=== PATIENT | male | born 1950 | race Caucasian/White ===

== ENCOUNTER 2017-07-09 16:28 | Inpatient (IN) | payer OTHER ==
[~2017-07-09] VITALS: Ht 180.3 cm; Wt 131.8 kg
[~2017-07-09 16:28] MED LIST: AMBIEN10 MG PO; ASPIRIN325 MG PO; ATORVASTATIN CA40 MG PO; CILOSTAZOL50 MG PO; COUMADIN1 MG PO; COUMADIN6 MG PO; ENDOCET 5-3251 EACH PO; FENOFIBRATE145 M1 PO; GABAPENTIN300 MG PO; JANTOVEN1 MG PO; JANTOVEN4 MG PO; JANTOVEN5 MG PO; LASIX20 MG PO; LIPITOR40 MG PO; LISINOPRIL-HCT1 EACH PO; LISINOPRIL5 MG PO; LITE COAT ASPI325 M1 PO; LO-DOSE ASPIRIN81 M2 PO; LOPRESSOR25 MG PO; METOPROLOL TART50 MG PO; MIDNITE PM CHE1 EACH PO; NITROSTAT0.4 MG SL; NORVASC10 MG PO; OMEGA-31000 M1 PO; PLAVIX75 MG PO; PLETAL100 MG PO; SERTRALINE HCL25 MG PO; SIMVASTATIN80 MG PO; TAMSULOSIN HCL0.4 MG PO; VITAMIN D2000 UNIT PO; VITAMIN D22000 UNIT PO; WARFARIN SODIUM2 MG PO
[2017-07-09 16:48] LABS: ANION GAP 16 MEQ/L (2-14); CHLORIDE 113 mEq/L (99-109); CREATININE 15.5 mg/dL (0.6-1.3); GLUCOSE 99 mg/dL (70-99); ISTAT DEVICE 359068; POTASSIUM > 6.0 mEq/L (3.7-5.4); SODIUM 136 mEq/L (136-147); UREA NITROGEN (BUN) 107 mg/dL (9-23)
[2017-07-09 17:01] LABS: HEMATOCRIT 42.8 % (38.0-50.0); MCH 29.3 PG (29.0-34.0); MCHC 32.5 G/DL (30.0-36.0); MCV 90.1 FL (86-99); MEAN PLAT.VOLUME 8.8 uM^3 (9.0-12.4); PLATELET COUNT 189 K/uL (156-360); RBC DIS.WIDTH-CV 16.1 % (11.8-14.6); RBC DIS.WIDTH-SD 53.1 % (39-53); RED BLOOD COUNT 4.75 M/uL (4.00-5.50); WHITE BLOOD COUNT 10.9 K/uL (4.1-10.2)
[2017-07-09 17:06] LABS: PTT 49.9 SEC (25-37)
[2017-07-09 17:11] LABS: CHLORIDE 110 mEq/L (99-109); SODIUM 137 mEq/L (136-147)
[2017-07-09 17:13] LABS: GLUCOSE 97 mg/dL (70-99)
[2017-07-09 17:14] LABS: ANION GAP 16 MEQ/L (2-14)
[2017-07-09 17:17] LABS: GFR ESTIMATE (CALCULATED) 4 mL/min/
[2017-07-09 17:18] LABS: UREA NITROGEN (BUN) 97 mg/dL (9-23)
[2017-07-09 17:19] LABS: POTASSIUM 7.4 mEq/L (3.7-5.4)
[2017-07-09 17:21] LABS: TROP-I INTERPRETATION NEGATIVE; TROPONIN-I 0.02 ng/mL (0.0-0.30)
[2017-07-09 17:55] LABS: INTER. NORMALIZED RATIO 3.7; PROTHROMBIN TIME 43.3 SEC (10.2-12.9)
[2017-07-09 17:59] LABS: CHLORIDE 110 mEq/L (99-109); SODIUM 137 mEq/L (136-147)
[2017-07-09 18:01] LABS: GLUCOSE 96 mg/dL (70-99)
[2017-07-09 18:02] LABS: ANION GAP 17 MEQ/L (2-14)
[2017-07-09 18:05] LABS: GFR ESTIMATE (CALCULATED) 4 mL/min/
[2017-07-09 18:06] LABS: UREA NITROGEN (BUN) 98 mg/dL (9-23)
[2017-07-09] MEDS ORDERED: TRICOR145 MG PO (19:43)
[2017-07-09] MEDS ORDERED: WARFARIN SODIUM1 MG PO (19:47)
[2017-07-09] MEDS ORDERED: WARFARIN SODIUM5 MG PO (19:47)
[2017-07-09] MEDS ORDERED: LOPRESSOR25 MG PO (19:49)
[2017-07-09] MEDS ORDERED: ZOLPIDEM TARTRA10 MG PO (19:49)
[2017-07-09] MEDS ORDERED: ATORVASTATIN CA40 MG PO (19:50)
[2017-07-09] MEDS ORDERED: GABAPENTIN300 MG PO (19:51)
[2017-07-09 20:36] LABS: POINT-OF-CARE METER ID UU13113747
[2017-07-09 21:38] LABS: CHLORIDE 111 mEq/L (99-109); SODIUM 140 mEq/L (136-147)
[2017-07-09 21:39] LABS: GLUCOSE 105 mg/dL (70-99)
[2017-07-09 21:41] LABS: ANION GAP 17 MEQ/L (2-14)
[2017-07-09 21:43] LABS: GFR ESTIMATE (CALCULATED) 4 mL/min/
[2017-07-09 21:44] LABS: UREA NITROGEN (BUN) 94 mg/dL (9-23)
[2017-07-09 21:45] LABS: POTASSIUM 6.1 mEq/L (3.7-5.4)
[2017-07-09 23:33] LABS: CHLORIDE 109 mEq/L (99-109); SODIUM 140 mEq/L (136-147)
[2017-07-09 23:35] LABS: GLUCOSE 107 mg/dL (70-99)
[2017-07-09 23:36] LABS: ANION GAP 16 MEQ/L (2-14)
[2017-07-09 23:38] LABS: GFR ESTIMATE (CALCULATED) 4 mL/min/
[2017-07-09 23:39] LABS: UREA NITROGEN (BUN) 95 mg/dL (9-23)
[2017-07-09 23:40] VITALS: BP 191/96
[2017-07-09 23:42] VITALS: BP 193/96
[2017-07-09 23:51] LABS: POTASSIUM 7.1 mEq/L (3.7-5.4)
[2017-07-10] VITALS (14 sets, daily range): BP systolic 143–212; BP diastolic 70–107
[2017-07-10 00:55] LABS: METH RESISTANT S AUREUS PCR NEGATIVE (NEGATIVE)
[2017-07-10 01:02] LABS: PROBE CHECK PASS; SPECIMEN PROCESSING CONTROL PASS
[2017-07-10 02:47] LABS: CHLORIDE 110 mEq/L (99-109); POTASSIUM 5.9 mEq/L (3.7-5.4); SODIUM 141 mEq/L (136-147)
[2017-07-10 02:49] LABS: GLUCOSE 89 mg/dL (70-99)
[2017-07-10 02:50] LABS: ANION GAP 15 MEQ/L (2-14)
[2017-07-10 02:52] LABS: GFR ESTIMATE (CALCULATED) 4 mL/min/
[2017-07-10 02:57] LABS: UREA NITROGEN (BUN) 101 mg/dL (9-23)
[2017-07-10 05:13] LABS: INTER. NORMALIZED RATIO 1.5; PROTHROMBIN TIME 16.3 SEC (10.2-12.9)
[2017-07-10 07:31] LABS: SAMPLE HEMOLYSIS CHECK 2; SAMPLE ICTERIC CHECK 0; SAMPLE LIPEMIA CHECK 0
[2017-07-10 08:47] LABS: ANION GAP 17 MEQ/L (2-14); CHLORIDE 110 MEQ/L (99-109); GFR ESTIMATE (CALCULATED) 4 mL/min/; GLUCOSE 101 mg/dL (70-99); POTASSIUM 5.2 MEQ/L (3.7-5.4); SAMPLE HEMOLYSIS CHECK 0; SAMPLE ICTERIC CHECK 0; SAMPLE LIPEMIA CHECK 0; SODIUM 145 MEQ/L (136-147); UREA NITROGEN (BUN) 97 mg/dL (9-23)
[2017-07-10 10:46] LABS: HBSG INDEX 0.16
[2017-07-10 10:47] LABS: AHBS INDEX 0.26; HEPATITIS B SURFACE ANTIBODY Nonreactive
[2017-07-10 19:57] LABS: ANION GAP 16 MEQ/L (2-14); CHLORIDE 104 MEQ/L (99-109); GLUCOSE 122 mg/dL (70-99); SAMPLE HEMOLYSIS CHECK 0; SAMPLE ICTERIC CHECK 0; SAMPLE LIPEMIA CHECK 0; SODIUM 141 MEQ/L (136-147); UREA NITROGEN (BUN) 69 mg/dL (9-23)
[2017-07-10 20:01] LABS: GFR ESTIMATE (CALCULATED) 6 mL/min/; POTASSIUM 4.1 MEQ/L (3.7-5.4)
[2017-07-11] VITALS: BP 183/84
[2017-07-11 05:15] VITALS: BP 123/82
[2017-07-11 06:01] LABS: ANION GAP 16 MEQ/L (2-14); CHLORIDE 104 MEQ/L (99-109); GFR ESTIMATE (CALCULATED) 5 mL/min/; MAGNESIUM 1.8 mg/dl (1.3-2.7); POTASSIUM 4.3 MEQ/L (3.7-5.4); SAMPLE HEMOLYSIS CHECK 0; SAMPLE ICTERIC CHECK 0; SAMPLE LIPEMIA CHECK 0; SODIUM 143 MEQ/L (136-147); UREA NITROGEN (BUN) 73 mg/dL (9-23)
[2017-07-11 06:03] LABS: GLUCOSE 82 mg/dL (70-99)
[2017-07-11 06:07] LABS: ANION GAP 17 MEQ/L (2-14); CHLORIDE 105 MEQ/L (99-109); GFR ESTIMATE (CALCULATED) 5 mL/min/; GLUCOSE 89 mg/dL (70-99); POTASSIUM 4.2 MEQ/L (3.7-5.4); SAMPLE HEMOLYSIS CHECK 0; SAMPLE ICTERIC CHECK 0; SAMPLE LIPEMIA CHECK 0; SODIUM 143 MEQ/L (136-147); UREA NITROGEN (BUN) 75 mg/dL (9-23)
[2017-07-11 06:36] LABS: BASOPHIL COUNT 0.1 K/uL (0-0.1); EOSINOPHIL (%) 2.7 % (0-5); EOSINOPHIL COUNT 0.2 K/uL (0-0.3); IMMATURE GRANULOCYTE (%) 0.4 % (0.0-0.7); INSTRUMENT ABS NEUTROPHIL CT 4.7 K/uL; LYMPHOCYTE COUNT 1.3 K/uL (1.0-2.8); MCH 29.8 PG (29.0-34.0); MCHC 33.2 G/DL (30.0-36.0); MCV 89.6 FL (86-99); MONOCYTE (%) 10.1 % (3-12); MONOCYTE COUNT 0.7 K/uL (0-0.8); NEUTROPHIL (%) 67.7 % (45-76); NEUTROPHIL COUNT 4.7 K/uL (1.8-6.4); RBC DIS.WIDTH-CV 15.9 % (11.8-14.6); RBC DIS.WIDTH-SD 52.9 % (39-53); RED BLOOD COUNT 4.13 M/uL (4.00-5.50); WHITE BLOOD COUNT 6.9 K/uL (4.1-10.2)
[2017-07-11 06:42] LABS: MEAN PLAT.VOLUME 9.2 uM^3 (9.0-12.4); PLAT.SUFFICIENCY ADEQUATE
[2017-07-11 06:43] LABS: PLATELET COUNT 130 K/uL (156-360)
[2017-07-11 11:59] LABS: POINT-OF-CARE METER ID UU13113748; POINT-OF-CARE USER ID 606021424
[2017-07-11 13:13] VITALS: BP 176/83
[2017-07-11 15:03] VITALS: BP 137/79
[2017-07-11 19:21] VITALS: BP 165/78
[2017-07-11 23:33] VITALS: BP 157/74
[2017-07-12 03:31] VITALS: BP 179/99
[2017-07-12 03:40] VITALS: BP 140/79
[2017-07-12 06:02] LABS: CHLORIDE 105 mEq/L (99-109); POTASSIUM 3.9 mEq/L (3.7-5.4); SODIUM 142 mEq/L (136-147)
[2017-07-12 06:03] LABS: MAGNESIUM 1.7 mg/dL (1.3-2.7)
[2017-07-12 06:05] LABS: GLUCOSE 86 mg/dL (70-99)
[2017-07-12 06:06] LABS: ANION GAP 18 MEQ/L (2-14)
[2017-07-12 06:08] LABS: GFR ESTIMATE (CALCULATED) 5 mL/min/
[2017-07-12 06:09] LABS: UREA NITROGEN (BUN) 62 mg/dL (9-23)
[2017-07-12 08:00] VITALS: BP 119/70
[2017-07-12 09:43] LABS: INTER. NORMALIZED RATIO 1.3; PROTHROMBIN TIME 14.7 SEC (10.2-12.9)
[2017-07-12 10:55] VITALS: BP 166/76
[2017-07-12 15:59] VITALS: BP 174/87
[2017-07-12 19:03] VITALS: BP 183/83
[2017-07-12 21:23] LABS: ALKALINE PHOSPHATASE 33 IU/L (3-129); ANION GAP 15 MEQ/L (2-14); CHLORIDE 101 MEQ/L (99-109); GFR ESTIMATE (CALCULATED) 5 mL/min/; GLUCOSE 95 mg/dL (70-99); MAGNESIUM 1.8 mg/dl (1.3-2.7); POTASSIUM 4.4 MEQ/L (3.7-5.4); SAMPLE HEMOLYSIS CHECK 0; SAMPLE ICTERIC CHECK 0; SAMPLE LIPEMIA CHECK 0; SODIUM 141 MEQ/L (136-147); TOTAL BILIRUBIN 0.6 MG/DL (0.0-1.0); UREA NITROGEN (BUN) 72 mg/dL (9-23)
[2017-07-12 21:26] LABS: TROP-I INTERPRETATION NEGATIVE; TROPONIN-I 0.06 ng/mL (0.0-0.30)
[2017-07-12 21:30] LABS: POINT-OF-CARE METER ID UU14208750
[2017-07-13 02:59] LABS: TROP-I INTERPRETATION NEGATIVE; TROPONIN-I 0.03 ng/mL (0.0-0.30)
[2017-07-13 06:43] VITALS: BP 163/72
[2017-07-13 07:43] LABS: INTER. NORMALIZED RATIO 1.3; PROTHROMBIN TIME 14.5 SEC (10.2-12.9)
[2017-07-13 08:01] LABS: ANION GAP 18 MEQ/L (2-14); CHLORIDE 101 MEQ/L (99-109); GFR ESTIMATE (CALCULATED) 5 mL/min/; GLUCOSE 131 mg/dL (70-99); POTASSIUM 4.2 MEQ/L (3.7-5.4); SAMPLE HEMOLYSIS CHECK 0; SAMPLE ICTERIC CHECK 0; SAMPLE LIPEMIA CHECK 0; SODIUM 141 MEQ/L (136-147); UREA NITROGEN (BUN) 74 mg/dL (9-23)
[2017-07-13 08:02] LABS: TROP-I INTERPRETATION NEGATIVE; TROPONIN-I 0.06 ng/mL (0.0-0.30)
[2017-07-13 08:25] LABS: EOSINOPHIL (%) 2.4 % (0-5); EOSINOPHIL COUNT 0.2 K/uL (0-0.3); HEMATOCRIT 36.8 % (38.0-50.0); IMMATURE GRANULOCYTE (%) 0.5 % (0.0-0.7); INSTRUMENT ABS NEUTROPHIL CT 5.7 K/uL; LYMPHOCYTE COUNT 1.3 K/uL (1.0-2.8); MCH 29.1 PG (29.0-34.0); MCHC 32.6 G/DL (30.0-36.0); MCV 89.3 FL (86-99); MEAN PLAT.VOLUME 9.1 uM^3 (9.0-12.4); MONOCYTE (%) 8.1 % (3-12); MONOCYTE COUNT 0.6 K/uL (0-0.8); NEUTROPHIL (%) 72.5 % (45-76); NEUTROPHIL COUNT 5.7 K/uL (1.8-6.4); PLATELET COUNT 152 K/uL (156-360); RBC DIS.WIDTH-CV 15.2 % (11.8-14.6); RBC DIS.WIDTH-SD 50.3 % (39-53); RED BLOOD COUNT 4.12 M/uL (4.00-5.50); WHITE BLOOD COUNT 7.9 K/uL (4.1-10.2)
[2017-07-13 08:33] LABS: ANION GAP 15 MEQ/L (2-14); CHLORIDE 101 MEQ/L (99-109); POTASSIUM 4.1 MEQ/L (3.7-5.4); SAMPLE HEMOLYSIS CHECK 0; SAMPLE ICTERIC CHECK 0; SAMPLE LIPEMIA CHECK 0; SODIUM 141 MEQ/L (136-147)
[2017-07-13 08:39] LABS: GFR ESTIMATE (CALCULATED) 4 mL/min/; GLUCOSE 108 mg/dL (70-99); UREA NITROGEN (BUN) 75 mg/dL (9-23)
[2017-07-13 11:30] VITALS: BP 171/80
[2017-07-13 15:02] VITALS: BP 132/78
[2017-07-13 18:44] LABS: INTER. NORMALIZED RATIO 1.4; PROTHROMBIN TIME 15.2 SEC (10.2-12.9)
[2017-07-13 18:47] LABS: PTT 32.9 SEC (25-37)
[2017-07-13 19:42] VITALS: BP 145/83
[2017-07-13 23:50] VITALS: BP 139/75
[2017-07-14 01:37] LABS: INTER. NORMALIZED RATIO 1.3; PROTHROMBIN TIME 14.7 SEC (10.2-12.9)
[2017-07-14 01:39] LABS: PTT 39.3 SEC (25-37)
[2017-07-14 03:52] VITALS: BP 135/72
[2017-07-14 08:14] LABS: BASOPHIL COUNT 0.1 K/uL (0-0.1); EOSINOPHIL (%) 0.5 % (0-5); EOSINOPHIL COUNT 0.1 K/uL (0-0.3); IMMATURE GRANULOCYTE (%) 0.5 % (0.0-0.7); IMMATURE GRANULOCYTE COUNT 0.1 K/uL; INSTRUMENT ABS NEUTROPHIL CT 12.4 K/uL; LYMPHOCYTE COUNT 1.4 K/uL (1.0-2.8); MCH 29.1 PG (29.0-34.0); MCHC 32.6 G/DL (30.0-36.0); MCV 89.2 FL (86-99); MEAN PLAT.VOLUME 9.5 uM^3 (9.0-12.4); MONOCYTE (%) 6.5 % (3-12); NEUTROPHIL (%) 82.7 % (45-76); NEUTROPHIL COUNT 12.4 K/uL (1.8-6.4); PLATELET COUNT 151 K/uL (156-360); RBC DIS.WIDTH-CV 15.6 % (11.8-14.6); RBC DIS.WIDTH-SD 51.2 % (39-53); RED BLOOD COUNT 4.26 M/uL (4.00-5.50)
[2017-07-14 08:31] LABS: ANION GAP 14 MEQ/L (2-14); CHLORIDE 101 MEQ/L (99-109); GFR ESTIMATE (CALCULATED) 7 mL/min/; GLUCOSE 144 mg/dL (70-99); POTASSIUM 3.2 MEQ/L (3.7-5.4); SAMPLE HEMOLYSIS CHECK 0; SAMPLE ICTERIC CHECK 0; SAMPLE LIPEMIA CHECK 0; SODIUM 141 MEQ/L (136-147); UREA NITROGEN (BUN) 56 mg/dL (9-23)
[2017-07-14 11:39] VITALS: BP 141/71
[2017-07-14 16:00] VITALS: BP 130/70
[2017-07-14 16:59] LABS: ADD MIUA? YES; BILIRUBIN NEGATIVE; BLOOD SMALL; COLOR YELLOW ((YELLOW)); GLUCOSE (STRIP) NEGATIVE; KETONES NEGATIVE; LEUKOCYTES NEGATIVE; NITRITE NEGATIVE; PROTEIN (STRIP) 100; SPECIFIC GRAVITY 1.009 (1.000-1.030); UROBILINOGEN 0.2 MG/DL (0.2-1.0)
[2017-07-14 17:08] LABS: BACTERIA RARE /HPF; EPITHELIAL CELLS RARE /HPF; MUCUS TRACE /LPF; RED BLOOD CELLS 0-5 /HPF (0-5); WHITE BLOOD CELLS 0-5 /HPF (0-5)
[2017-07-14 17:48] LABS: INTER. NORMALIZED RATIO 1.4
[2017-07-14 17:51] LABS: PTT 46.6 SEC (25-37)
[2017-07-14 19:36] VITALS: BP 182/80
[2017-07-15 00:23] VITALS: BP 164/75
[2017-07-15 00:37] LABS: INTER. NORMALIZED RATIO 1.3; PROTHROMBIN TIME 14.7 SEC (10.2-12.9)
[2017-07-15 00:39] LABS: PTT 34.6 SEC (25-37)
[2017-07-15 04:25] VITALS: BP 137/70
[2017-07-15 06:30] LABS: INTER. NORMALIZED RATIO 1.3; PROTHROMBIN TIME 14.6 SEC (10.2-12.9)
[2017-07-15 06:33] LABS: PTT 45.5 SEC (25-37)
[2017-07-15 06:56] LABS: ANION GAP 13 MEQ/L (2-14); CHLORIDE 104 MEQ/L (99-109); GFR ESTIMATE (CALCULATED) 9 mL/min/; POTASSIUM 3.5 MEQ/L (3.7-5.4); SAMPLE HEMOLYSIS CHECK 0; SAMPLE ICTERIC CHECK 0; SAMPLE LIPEMIA CHECK 0; SODIUM 142 MEQ/L (136-147); UREA NITROGEN (BUN) 41 mg/dL (9-23)
[2017-07-15 07:00] LABS: GLUCOSE 97 mg/dL (70-99)
[2017-07-15 07:35] VITALS: BP 144/83
[2017-07-15 12:11] VITALS: BP 140/93
[2017-07-15 15:04] LABS: INTER. NORMALIZED RATIO 1.2; PROTHROMBIN TIME 13.7 SEC (10.2-12.9)
[2017-07-15 15:07] LABS: PTT 31.3 SEC (25-37)
[2017-07-15 17:34] VITALS: BP 130/58
[2017-07-15 19:58] VITALS: BP 168/79
[2017-07-15 22:27] LABS: INTER. NORMALIZED RATIO 1.3; PROTHROMBIN TIME 14.4 SEC (10.2-12.9)
[2017-07-15 22:33] LABS: PTT 56.1 SEC (25-37)
[2017-07-16] VITALS (7 sets, daily range): BP systolic 121–165; BP diastolic 58–86
[2017-07-16 04:43] LABS: EOSINOPHIL (%) 1.2 % (0-5); EOSINOPHIL COUNT 0.2 K/uL (0-0.3); HEMATOCRIT 37.2 % (38.0-50.0); IMMATURE GRANULOCYTE (%) 0.7 % (0.0-0.7); IMMATURE GRANULOCYTE COUNT 0.1 K/uL; INSTRUMENT ABS NEUTROPHIL CT 11.2 K/uL; LYMPHOCYTE COUNT 1.5 K/uL (1.0-2.8); MCH 29.2 PG (29.0-34.0); MCHC 32.5 G/DL (30.0-36.0); MCV 89.6 FL (86-99); MONOCYTE (%) 7.6 % (3-12); MONOCYTE COUNT 1.1 K/uL (0-0.8); NEUTROPHIL (%) 79.6 % (45-76); NEUTROPHIL COUNT 11.2 K/uL (1.8-6.4); PLATELET COUNT 185 K/uL (156-360); RBC DIS.WIDTH-CV 15.6 % (11.8-14.6); RBC DIS.WIDTH-SD 51.5 % (39-53); RED BLOOD COUNT 4.15 M/uL (4.00-5.50); WHITE BLOOD COUNT 14.1 K/uL (4.1-10.2)
[2017-07-16 05:12] LABS: INTER. NORMALIZED RATIO 1.3; PROTHROMBIN TIME 14.5 SEC (10.2-12.9)
[2017-07-16 07:30] LABS: ANION GAP 14 MEQ/L (2-14); CHLORIDE 103 MEQ/L (99-109); POTASSIUM 3.5 MEQ/L (3.7-5.4); SAMPLE HEMOLYSIS CHECK 0; SAMPLE ICTERIC CHECK 0; SAMPLE LIPEMIA CHECK 0; SODIUM 140 MEQ/L (136-147)
[2017-07-16 07:36] LABS: GFR ESTIMATE (CALCULATED) 8 mL/min/; GLUCOSE 92 mg/dL (70-99); UREA NITROGEN (BUN) 50 mg/dL (9-23)
[2017-07-17 03:21] LABS: CHLORIDE 102 mEq/L (99-109); POTASSIUM 3.5 mEq/L (3.7-5.4); SODIUM 139 mEq/L (136-147)
[2017-07-17 03:30] LABS: GLUCOSE 105 mg/dL (70-99)
[2017-07-17 03:31] LABS: ANION GAP 13 MEQ/L (2-14)
[2017-07-17 03:34] LABS: GFR ESTIMATE (CALCULATED) 8 mL/min/
[2017-07-17 03:35] LABS: UREA NITROGEN (BUN) 60 mg/dL (9-23)
[2017-07-17 03:36] LABS: INTER. NORMALIZED RATIO 1.2; PROTHROMBIN TIME 13.5 SEC (10.2-12.9)
[2017-07-17 03:38] LABS: PTT 57.1 SEC (25-37)
[2017-07-17 03:43] VITALS: BP 127/73
[2017-07-17 07:01] LABS: Estimated Average Glucose 123 mg/dL (70-123); HEMOGLOBIN A1c (GLYCOHEMOGLOB) 5.9 % HGB (Below 5.7)
[2017-07-17 07:05] VITALS: BP 126/60
[2017-07-17 11:04] VITALS: BP 129/56
[2017-07-17 15:18] VITALS: BP 145/67
[2017-07-17 19:15] VITALS: BP 136/69
[2017-07-17 23:30] VITALS: BP 138/78
[2017-07-18 03:48] VITALS: BP 150/65
[2017-07-18 04:59] LABS: BASOPHIL COUNT 0.1 K/uL (0-0.1); EOSINOPHIL (%) 2.8 % (0-5); EOSINOPHIL COUNT 0.2 K/uL (0-0.3); HEMATOCRIT 36.1 % (38.0-50.0); IMMATURE GRANULOCYTE (%) 3.4 % (0.0-0.7); IMMATURE GRANULOCYTE COUNT 0.3 K/uL; INSTRUMENT ABS NEUTROPHIL CT 5.5 K/uL; LYMPHOCYTE COUNT 1.5 K/uL (1.0-2.8); MCH 28.9 PG (29.0-34.0); MCHC 32.4 G/DL (30.0-36.0); MCV 89.1 FL (86-99); MEAN PLAT.VOLUME 9.1 uM^3 (9.0-12.4); MONOCYTE (%) 11.5 % (3-12); NEUTROPHIL (%) 64.4 % (45-76); NEUTROPHIL COUNT 5.5 K/uL (1.8-6.4); PLATELET COUNT 166 K/uL (156-360); RBC DIS.WIDTH-CV 15.1 % (11.8-14.6); RBC DIS.WIDTH-SD 49.7 % (39-53); RED BLOOD COUNT 4.05 M/uL (4.00-5.50); WHITE BLOOD COUNT 8.5 K/uL (4.1-10.2)
[2017-07-18 05:28] LABS: INTER. NORMALIZED RATIO 1.2; PROTHROMBIN TIME 12.9 SEC (10.2-12.9)
[2017-07-18 05:31] LABS: PTT 63.5 SEC (25-37)
[2017-07-18 06:15] LABS: CHLORIDE 102 mEq/L (99-109); POTASSIUM 3.5 mEq/L (3.7-5.4); SODIUM 140 mEq/L (136-147)
[2017-07-18 06:17] LABS: GLUCOSE 103 mg/dL (70-99)
[2017-07-18 06:18] LABS: ANION GAP 14 MEQ/L (2-14)
[2017-07-18 06:21] LABS: GFR ESTIMATE (CALCULATED) 10 mL/min/
[2017-07-18 06:22] LABS: UREA NITROGEN (BUN) 57 mg/dL (9-23)
[2017-07-18 07:42] VITALS: BP 124/67
[2017-07-18] MEDS ORDERED: LOSARTAN POTASS25 MG PO (11:45)
[2017-07-18] MEDS ORDERED: CALCIUM ACETAT667 MG PO (11:45)
== END 2017-07-18 13:30 | disposition home or self-care (01) | DRG 683 ==
LOC: EME 16:28 → 4WEST 19:43 → EDOF 19:43 → 2EASTP 19:43 → ENRESERV 19:48 → 4WEST 23:13 → ENRESERV 07-10 17:27 → 4WEST 07-11 07:08 → ENRESERV 07-11 11:15 → 2EASTP 07-11 12:36
PROVIDERS: Emergency Medicine; Hospitalist; Internal Medicine; Internal Medicine Critical Care Medicine; Internal Medicine Nephrology; Specialist
DX: N17.0 Acute kidney failure with tubular necrosis (principal); E87.5 Hyperkalemia; E87.2 Acidosis; E83.39 Other disorders of phosphorus metabolism; E87.6 Hypokalemia; R50.9 Fever, unspecified; I13.0 Hypertensive heart and chronic kidney disease with heart failure and stage 1 through stage 4 chronic kidney disease, or unspecified chronic kidney disease; I50.9 Heart failure, unspecified; E11.21 Type 2 diabetes mellitus with diabetic nephropathy; E11.22 Type 2 diabetes mellitus with diabetic chronic kidney disease; N18.4 Chronic kidney disease, stage 4 (severe); E78.5 Hyperlipidemia, unspecified; I25.10 Atherosclerotic heart disease of native coronary artery without angina pectoris; G47.33 Obstructive sleep apnea (adult) (pediatric); I25.5 Ischemic cardiomyopathy; I27.2 Other secondary pulmonary hypertension; I36.1 Nonrheumatic tricuspid (valve) insufficiency; I48.0 Paroxysmal atrial fibrillation; I73.9 Peripheral vascular disease, unspecified; K21.9 Gastro-esophageal reflux disease without esophagitis; F32.9 Major depressive disorder, single episode, unspecified; G43.909 Migraine, unspecified, not intractable, without status migrainosus; L89.890 Pressure ulcer of other site, unstageable; N40.0 Benign prostatic hyperplasia without lower urinary tract symptoms; E66.01 Morbid (severe) obesity due to excess calories; Z79.01 Long term (current) use of anticoagulants; I25.2 Old myocardial infarction; Z95.1 Presence of aortocoronary bypass graft; Z87.891 Personal history of nicotine dependence; Z95.0 Presence of cardiac pacemaker; Z95.5 Presence of coronary angioplasty implant and graft; Z68.41 Body mass index [BMI] 40.0-44.9, adult; Z79.82 Long term (current) use of aspirin; Z79.02 Long term (current) use of antithrombotics/antiplatelets
CPT/HCPCS: 71010; 71020; 80047; 80048; 80048 91; 80053; 80069; 80202; 81003; 82948; 83036; 83605; 83735; 84100; 84484; 84999; 85025; 85027; 85610; 85730; 86706; 87040; 87340; 87641; 93005; 93306; 94640; 94799; 99281; 99285; C1752; C9132; J0360; J0610; J0692; J1644; J1815; J1940; J3370; J3430; J7030; J7042; J7050